=== PATIENT | female | born 1985 | race Native Hawaiian/Other Pacific Islander ===

== ENCOUNTER 2017-04-02 11:50 | Outpatient (CLI) | payer OTHER ==
[~2017-04-02 11:50] MED LIST: ALBUTEROL0.083 % IN; ALLEGRA ALRG180 M1 PO; BROMFED DM PO; IBUP-587 PO; LEVAQUIN500 MG OR; LORA10TA3 PO; MEDROL DOSEPAK4 MG OR; PREDNISONE5 M1 OR; TRIA0.1C5 EX
[2017-04-02 12:31] LABS: PLATELET COUNT 311 K/uL (152-353)
[2017-04-02 12:50] LABS: POTASSIUM 3.9 mmol/L (3.6-5.2); SODIUM 138 mmol/L (136-145)
== END 2017-04-02 13:00 | disposition home or self-care (01) ==
LOC: LABW 11:50
PROVIDERS: Nurse Practitioner Family
DX: Z00.00 Encounter for general adult medical examination without abnormal findings (principal); R53.83 Other fatigue; R53.81 Other malaise; E55.9 Vitamin D deficiency, unspecified; E78.00 Pure hypercholesterolemia, unspecified
CPT/HCPCS: 80053; 80061; 82306; 82607; 83036; 84436; 84443; 85027

== ENCOUNTER 2017-12-31 12:05 | Outpatient (CLI) | payer OTHER ==
[2017-12-31 12:42] LABS: PLATELET COUNT 345 K/uL (152-353)
[2017-12-31 13:16] LABS: POTASSIUM 3.9 mmol/L (3.6-5.2)
== END 2017-12-31 18:00 | disposition home or self-care (01) ==
LOC: LABW 12:05
PROVIDERS: Nurse Practitioner Family
DX: Z00.00 Encounter for general adult medical examination without abnormal findings (principal); J30.9 Allergic rhinitis, unspecified; K21.9 Gastro-esophageal reflux disease without esophagitis; R53.83 Other fatigue; R53.81 Other malaise; E78.00 Pure hypercholesterolemia, unspecified
CPT/HCPCS: 80053; 80061; 83036; 84436; 84443; 85027